=== PATIENT | female | born 1955 | race Caucasian/White ===

== ENCOUNTER 2018-05-23 15:42 | Inpatient (IN) | payer MEDICAID, OTHER ==
[~2018-05-23] VITALS: Ht 160 cm; Wt 125.6 kg
[2018-05-23] MEDS ORDERED: MORPHINE SULFATE 4 MG/ML CPJ (NOT FOR IM USE) IV ONE (16:30)
[2018-05-23] MEDS ORDERED: FENTANYL CITRATE/PF 50MCG/ML 2ML VIAL IV ONE (18:00)
[2018-05-23] MEDS ORDERED: MORPHINE SULFATE 4 MG/ML CPJ (NOT FOR IM USE) IV SCH (22:00)
[2018-05-23 22:20] VITALS: BP 164/77
[2018-05-24] VITALS: BP 128/80
[2018-05-24 04:00] VITALS: BP 141/64
[2018-05-24] MEDS: SODIUM CHLORIDE 0.9% 1,000 ML IV SCH (05:56)
[2018-05-24 06:47] LABS: HEMATOCRIT 37.5 % (36.0-48.0); HEMOGLOBIN 12.9 g/dL (12.0-16.0); MEAN CORPUSCULAR HEMOGLOBIN 29.6 pg (28.0-32.0); MEAN CORPUSCULAR VOLUME 86.1 fL (81.0-99.0); PLATELET 208 x1000/uL (130-400); RED BLOOD CELL COUNT 4.36 mill/uL (4.2-5.4); RED CELL DISTRIBUTION WIDTH 14.3 % (11.6-14.6)
[2018-05-24 07:55] LABS: CHLORIDE 109 mEq/L (98-107)
[2018-05-24 08:00] VITALS: BP 141/68
[2018-05-24] MEDS ORDERED: CHLORHEXIDINE GLUCONATE 4% EXTERNAL USE TOP NR (09:45)
[2018-05-24 10:49] LABS: PARTIAL THROMBOPLASTIN TIME 27.1 sec (23.4-31.0); PROTHROMBIN TIME 10.7 sec (9.6-11.0)
[2018-05-24 12:00] VITALS: BP 137/67
[2018-05-24] MEDS ORDERED: NORMAL SALINE 0.9% 10 ML SYR ONE (16:06)
[2018-05-24] MEDS ORDERED: VANCOMYCIN HCL 500 MG/VIAL ONE (16:06)
[2018-05-24] MEDS ORDERED: BACITRACIN 50,000 UNITS/VIAL ONE (16:07)
[2018-05-24] MEDS ORDERED: BUPIVACAINE HCL 0.5% (5MG/ML) 50ML ONE (16:08)
[2018-05-24] MEDS ORDERED: BUPIVACAINE HCL/EPINEPHRINE 0.5%/0.0005 30ML ONE (16:10)
[2018-05-24 17:30] VITALS: BP 147/73
[2018-05-24 17:42] LABS: CLARITY URINE CLEAR (CLEAR); COLOR URINE YELLOW (YELLOW); KETONES URINE 2+ (NEGATIVE); LEUKOCYTE ESTERASE URINE 2+ (NEGATIVE); NITRITE URINE NEGATIVE (NEGATIVE); OCCULT BLOOD URINE NEGATIVE (NEGATIVE); PH URINE 6.5 (4.5-8.0); PROTEIN URINE NEGATIVE (NEGATIVE); SPECIFIC GRAVITY URINE 1.009 (1.005-1.030); UROBILINOGEN URINE 0.2 E.U./dL (0.2-1.0)
[2018-05-24] MEDS ORDERED: PROPOFOL 200MG/20ML VIAL IV ONE ×3 (18:07→19:10)
[2018-05-24] MEDS ORDERED: MIDAZOLAM HCL 2 MG/2 ML VIAL ONE (18:07)
[2018-05-24] MEDS ORDERED: FENTANYL CITRATE/PF 50MCG/ML 2ML VIAL ONE (18:07)
[2018-05-24] MEDS ORDERED: DEXAMETHASONE 4MG/ML 1ML VIAL ONE (18:12)
[2018-05-24] MEDS ORDERED: ONDANSETRON HCL 4MG/2ML INJ ONE (18:18)
[2018-05-24] MEDS ORDERED: HYDROMORPHONE HCL/PF 2MG/ML CPJ IV PRN (18:45)
[2018-05-24] MEDS ORDERED: MEPERIDINE HCL/PF 25MG/ML CPJ IV PRN (18:45)
[2018-05-24] MEDS ORDERED: LABETALOL 5MG/ML SYR 20 MG/4 ML SYRINGE IV PRN (18:45)
[2018-05-24] MEDS ORDERED: ONDANSETRON HCL 4MG/2ML INJ IV PRN ×3 (18:45→21:45)
[2018-05-24] MEDS ORDERED: ROCURONIUM BROMIDE 10MG/ML VIAL 5ML IV ONE (19:09)
[2018-05-24] MEDS ORDERED: SUCCINYLCHOLINE CHLORIDE 200MG/10ML IV ONE (19:10)
[2018-05-24] MEDS ORDERED: HYDROMORPHONE HCL/PF 2MG/ML (OR) ONE (20:48)
[2018-05-24] MEDS ORDERED: HYDROCODONE/ACETAMINOPHEN 5/325MG TABLET PO PRN ×2 (21:45)
[2018-05-24] MEDS ORDERED: MORPHINE SULFATE 4 MG/ML CPJ (NOT FOR IM USE) IV PRN ×3 (21:45)
[2018-05-24] MEDS ORDERED: MAGNESIUM HYDROXIDE 400MG/5ML 30ML UDC PO PRN (21:45)
[2018-05-25] VITALS (9 sets, daily range): BP systolic 106–152; BP diastolic 55–82
[2018-05-25] MEDS: CLINDAMYCIN 900 MG in DEXTROSE 5% WATER 50 ML IV SCH ×4 (00:35→21:42)
[2018-05-25] MEDS: SODIUM CHLORIDE 0.9% 1,000 ML IV SCH ×2 (00:37→17:07)
[2018-05-25] MEDS ORDERED: ENOXAPARIN 40MG/0.4ML SYR SUBCUT SCH (09:00)
[2018-05-25] MEDS: DOCUSATE SODIUM 100MG CAPSULE PO SCH ×2 (09:17→17:06)
[2018-05-25] MEDS: ENOXAPARIN 30MG/0.3ML SYR SUBCUT SCH ×2 (09:18→21:26)
[2018-05-25] MEDS: ACETAMINOPHEN 325MG TABLET PO PRN (15:44)
[2018-05-26] VITALS: BP 132/69
[2018-05-26] MEDS: SODIUM CHLORIDE 0.9% 1,000 ML IV SCH (02:35)
[2018-05-26 04:00] VITALS: BP 139/73
[2018-05-26 07:52] VITALS: BP 142/74
[2018-05-26] MEDS: ENOXAPARIN 30MG/0.3ML SYR SUBCUT SCH ×2 (08:27→20:47)
[2018-05-26] MEDS: ACETAMINOPHEN 325MG TABLET PO PRN (08:27)
[2018-05-26] MEDS: DOCUSATE SODIUM 100MG CAPSULE PO SCH ×2 (08:27→17:19)
[2018-05-26 11:52] VITALS: BP 130/57
[2018-05-26 20:00] VITALS: BP 130/61
[2018-05-27] VITALS: BP 136/60
[2018-05-27 04:00] VITALS: BP 128/66
[2018-05-27 08:00] VITALS: BP 151/77
[2018-05-27] MEDS: ACETAMINOPHEN 325MG TABLET PO PRN (08:49)
[2018-05-27] MEDS: ENOXAPARIN 30MG/0.3ML SYR SUBCUT SCH (08:49)
[2018-05-27] MEDS: DOCUSATE SODIUM 100MG CAPSULE PO SCH (08:49)
[2018-05-27] MEDS: SODIUM CHLORIDE 0.9% 1,000 ML IV SCH (09:41)
[2018-05-27 12:00] VITALS: BP 135/69
[2018-05-27 15:05] VITALS: BP 135/69
== END 2018-05-27 16:40 | disposition home health service (06) | DRG 313 ==
LOC: ER 15:42 → 8WST 19:59 → ENRESERV 21:22
PROVIDERS: ADMIT Internal Medicine; ATTEND Internal Medicine
PROC: 0QSGXZZ Reposition Right Tibia, External Approach (ICD-10-PCS; 2018-05-23)
PROC: 0QSJ04Z Reposition Right Fibula with Internal Fixation Device, Open Approach (ICD-10-PCS; principal; 2018-05-24)
PROC: 0QSG04Z Reposition Right Tibia with Internal Fixation Device, Open Approach (ICD-10-PCS; 2018-05-24)
PROC: 0QSG04Z Reposition Right Tibia with Internal Fixation Device, Open Approach (ICD-10-PCS; 2018-05-24)
DX: S82.851A Displaced trimalleolar fracture of right lower leg, initial encounter for closed fracture (principal); E66.01 Morbid (severe) obesity due to excess calories; Z68.42 Body mass index [BMI] 45.0-49.9, adult; S82.65XA Nondisplaced fracture of lateral malleolus of left fibula, initial encounter for closed fracture; I10 Essential (primary) hypertension; W01.0XXA Fall on same level from slipping, tripping and stumbling without subsequent striking against object, initial encounter; Y93.89 Activity, other specified; Y92.89 Other specified places as the place of occurrence of the external cause; Y99.8 Other external cause status; Z88.0 Allergy status to penicillin
CPT/HCPCS: 27825; 36415; 71045; 73590; 73600; 73610; 76000; 80048; 85027; 86850; 86900; 93005; 97116; 97162; 97166; 97530; 97535; 99285; C1713; J0171; J0330; J1100; J1170; J1650; J2250; J2270; J2405; J2704; J3010; J3370; J3490; J7030; J7060; Q4051